=== PATIENT | female | born 1970 | race Two or more races ===

== ENCOUNTER 2019-06-22 13:13 | Outpatient (CLI) | payer OTHER ==
[~2019-06-22 13:13] MED LIST: FOLIC ACID0.4 MG; HUMIRA20 MG/0.4; IMODIUM A-D2 M1; LEVSIN0.125 MG; PREDNISOLON5 MG/5 M1; ZANTAC300 MG PO
== END 2019-06-22 17:04 | disposition home or self-care (01) ==
LOC: MAMO-SONO 13:13
DX: N60.11 Diffuse cystic mastopathy of right breast (principal); N60.12 Diffuse cystic mastopathy of left breast; N63.41 Unspecified lump in right breast, subareolar